=== PATIENT | male | born 1940 | race Caucasian/White ===

== ENCOUNTER 2023-03-02 06:50 | Day surgery (SDC) | payer MEDICARE, OTHER, SELFPAY ==
[2023-03-02] VITALS (12 sets, daily range): BP systolic 107–145; BP diastolic 63–82; PULSE 59–72; RESP 16–18; TEMP 36.1–36.2; O2SAT 94–96; BMI 21.2
[2023-03-02] MEDS: LACTATED RINGERS 1000 ML 1,000 ML 100 ML IV (07:30)
[2023-03-02] MEDS: SODIUM CHLORIDE 0.9 % (FLUSH) 10 ML SYRINGE IVF (07:30)
--- NOTE | 2023-03-02 08:47 | PM.GSPRC ---
Operative Note Pre-op diagnosis: 1. 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 2. Limited laxity of the scalp skin. Post-op diagnosis: Same Type of Procedure: 1. Excision of squamous cell carcinoma off the top of the scalp. 2. Full-thickness skin graft 4 x 1.4 cm. Indications: 82-year-old male was seen in clinic for evaluation of a new scalp lesion That was noticed several months ago. This was biopsied by Dermatology and came back as focal squamous cell carcinoma in Situ in the background of hyperplastic and bowenoid actinic keratosis. On clinical exam on top of the scalp there was a 1.5 x 1 cm non healing scaly lesion. Scalp skin mobility was very limited. Given patient's pathologic diagnosis and his clinical exam with limited skin mobility of the scalp, excision in the operating room with possible skin graft was recommended. The procedure was discussed in detail. The risks associated procedure including infection, bleeding, and graft failure as well as the need for additional procedures were all discussed with the patient, and he agreed to proceed. Procedure Description: After discussing the risks and benefits of the procedure, the patient signed informed consent.? The operative site was marked and the patient was brought to the operating room and placed on the operating table in supine position.? Care was taken to pad the patient's pressure points.?? The patient was then intubated by anesthesia.?? The operative site was then prepped and draped in the usual sterile fashion.? A time-out was then performed. A horizontal elliptical skin incision was made on the top of the scalp around the 1.5 x 1 cm protruding ulcerated skin lesion. At least 0.2 cm anterior and posterior margins were taken to ensure complete excision of this woman's cell carcinoma. The ellipse of skin was marked with a single stitch anterior and double left and sent to pathology. Hemostasis was achieved with cautery. Skin flaps were developed anteriorly and posteriorly with cautery. Despite of developing skin flaps there was still a 1.5 cm separation of the skin edges in the anterior and posterior direction. While we were waiting for pathology results, I elected to harvest the skin graft. Full-thickness skin graft was taken from the right base of the neck. Local anesthetic was injected at the surgical site in the right neck. A vertical elliptical skin incision was made with a scalpel. The skin graft was placed in saline. The anterior and posterior skin edges were undermined with cautery to achieve tension-free closure. The skin edges were then reapproximated with interrupted 3-0 Vicryl sutures. The skin was closed with a running 4-or Monocryl stitch. The length of the incision was 5 cm. Steri-Strips and sterile dressing were placed over the incision. Pathology confirmed that the margins of excision were free of squamous cell carcinoma. We then proceeded with full-thickness skin graft placement. The harvested graft was removed from saline and 3 separate skin openings were made in the center of the graft with iris scissors. The graft was then placed over the top of the scalp surgical opening and sutured in place with interrupted 3-0 chromic sutures. 2 chromic sutures were placed in the center of the graft attaching the graft to the very thin galea. The graft was then covered with Adaptic and bacitracin. Bulky gauze was placed over the graft and the top of the scalp was then wrapped with Kerlix roll. Tubigrip was placed over the patient's head. The patient was then woken and transported to the recovery area in stable condition. ? The patient tolerated the procedure well. Findings: Limited skin laxity did not allow primary closure after excision of the top of the scalp squamous cell carcinoma. Full-thickness skin graft was placed over the top of the scalp. Anesthesia: GETA Surgeon: Fouzia Rinaldi MD Estimated blood loss (mL): 5 Additional Specimen Information: 1. Top of the scalp squamous cell carcinoma. Condition: stable Disposition: PACU Date of procedure: 03/02/23
[2023-03-02] MEDS: CEFAZOLIN 2 GM INJ IVP (09:21)
--- NOTE | 2023-03-02 09:27 | SUR.OPER ---
specimen transported to pathology at 09 for fresh frozen pathology.
[2023-03-02] MEDS: BACITRACIN OINTMENT BULK TUBE 1 APPLIC TOPICAL (09:47)
[2023-03-02] MEDS: BUPIVACAINE 0.25% 30 ML INJECTION (09:50)
--- NOTE | 2023-03-02 10:22 | W.ANESCHARGE ---
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
--- NOTE | 2023-03-02 10:44 | W.PM.H&PU ---
History & Physical Update History & Physical Update H&P Reviewed and patient assessed: No changes noted
== END 2023-03-02 11:53 | disposition home or self-care (01) ==
PROVIDERS: PCP Family Medicine; Visit Provider Surgery
PROC: (CPT 11623; principal; 2023-03-02 08:15)
DX: C44.42 Squamous cell carcinoma of skin of scalp and neck (principal)
CPT/HCPCS: 11623; 15220; 00300; 88305; 99100; J0330; J0665; J0690; J1100; J2704; J3010; J7120